=== PATIENT | female | born 1995 | race Two or more races ===

== ENCOUNTER 2021-02-12 07:58 | Inpatient (IN) | payer OTHER ==
[~2021-02-12] VITALS: Ht 167.6 cm; Wt 59.8 kg
[2021-02-12 09:54] LABS: COVID AG,FIA SOURCE NASOPHARYNGEAL
[2021-02-12 09:58] LABS: BASOPHILS % (AUTO) 0.4 % (0.0-2.0); EOSINOPHILS % (AUTO) 0.7 % (1.0-6.0); HEMATOCRIT 44.6 % (36-46); HEMOGLOBIN 14.8 g/dL (12.0-16.0); LYMPHOCYTES # (AUTO) 1.4 K/uL (1.0-4.8); LYMPHOCYTES % (AUTO) 17.3 % (22.0-44.0); MEAN CORPUSCULAR HEMOGLOBIN 33.2 pg (26.0-34.0); MEAN CORPUSCULAR HGB CONC 33.2 G/dL (31.0-37.0); MEAN CORPUSCULAR VOLUME 100 fL (80-100); MONOCYTES # (AUTO) 0.7 K/uL (0.1-1.0); MONOCYTES % (AUTO) 8.1 % (2.0-9.0); NEUTROPHILS # (AUTO) 6.1 K/uL (1.8-7.7); NEUTROPHILS % (AUTO) 73.5 % (40.0-70.0); PLATELET COUNT (AUTO) 286 K/uL (150-450); RED BLOOD CELL COUNT(AUTO) 4.46 MIL/uL (4.00-5.20); RED CELL DISTRIBUTION WIDTH 13.4 % (11.5-14.5)
[2021-02-12 10:05] LABS: CALCIUM, TOTAL 9.5 mg/dL (8.8-10.5); CARBON DIOXIDE 29 mmol/L (22-29); CHLORIDE 104 mmol/L (98-107); CREATININE 0.69 mg/dL (0.60-1.30); GLOMERULAR FILTR. RATE CALC > 60 mL/min (>60); GLUCOSE,RANDOM 103 mg/dL (70-110); UREA NITROGEN, BLOOD 6 mg/dL (7-18)
[2021-02-12 10:09] LABS: ANION GAP 7 mmol/L (8-16); POTASSIUM 4.4 mmol/L (3.5-5.1); SODIUM SERUM 140 mmol/L (136-145)
[2021-02-12 10:17] LABS: BILIRUBIN,TOTAL 0.6 mg/dL (0.1-1.0)
[2021-02-12 10:18] LABS: ALANINE AMINOTRANSFERASE 33 U/L (12-78); ALBUMIN 4.3 g/dL (3.4-5.0); ALKALINE PHOSPHATASE 78 U/L (46-116); ASPARTATE AMINOTRANSFERASE 23 U/L (15-37); HCG,QUANTITATIVE < 1 mIU/mL (0-6); TOTAL PROTEIN, SERUM 7.7 g/dL (6.4-8.2)
[2021-02-12 10:28] LABS: AMPHET/METH SCREEN,URINE NEGATIVE (NEGATIVE); BARBITURATE SCREEN, URINE NEGATIVE (NEGATIVE); BENZODIAZEPINES SCREEN,URINE NEGATIVE (NEGATIVE); CANNABINOID SCREEN,URINE POSITIVE (NEGATIVE); COCAINE SCREEN,URINE NEGATIVE (NEGATIVE); METHADONE SCREEN, URINE NEGATIVE (NEGATIVE); OPIATE SCREEN,URINE NEGATIVE (NEGATIVE)
[2021-02-12 10:33] LABS: PHENCYCLIDINE SCREEN,URINE NEGATIVE (NEGATIVE)
[2021-02-12] MEDS ORDERED: ZOLPIDEM TARTRATE 10 MG TABLET PO PRN (12:15)
[2021-02-12] MEDS ORDERED: HALOPERIDOL 5 MG TABLET PO PRN (12:15)
[2021-02-12 14:01] VITALS: BP 140/85
[2021-02-12 16:06] VITALS: BP 124/68
[2021-02-13] MEDS ORDERED: MAGNESIUM HYDROXIDE SUSPENSION 30 ML UDCUP PO PRN (07:30)
[2021-02-13] MEDS ORDERED: PETROLATUM,WHITE 28 GM JELLY TP PRN (07:30)
[2021-02-13] MEDS ORDERED: ACETAMINOPHEN 325 MG TABLET PO PRN (07:30)
[2021-02-13] MEDS ORDERED: ONDANSETRON HCL 4 MG TABLET PO PRN (07:30)
[2021-02-13] MEDS ORDERED: GuaiFENesin/D-METHORPHAN [SUGAR-FREE] 200-20MG/10 ML SYRUP UDCUP PO PRN (07:30)
[2021-02-13] MEDS ORDERED: DOCUSATE SODIUM 100 MG CAPSULE PO PRN (07:30)
[2021-02-13] MEDS ORDERED: IBUPROFEN 400 MG TABLET PO PRN (07:30)
[2021-02-13] MEDS ORDERED: MAG HYDROX/AL HYDROX/SIMETH ES 30 ML SUSPENSION UDCUP PO PRN (07:30)
[2021-02-13] MEDS ORDERED: LOPERAMIDE HCL 2 MG CAPSULE PO PRN (07:30)
[2021-02-13] MEDS ORDERED: ALBUTEROL SULFATE HFA 90 MCG/PUFF 8 GM INHALER IH PRN (07:30)
[2021-02-13] MEDS ORDERED: NICOTINE 14 MG/24 HOUR PATCH TD PRN (07:30)
[2021-02-13] MEDS ORDERED: CloNIDine HCL 0.1 MG TABLET PO PRN (07:30)
[2021-02-13 08:04] VITALS: BP 112/76
[2021-02-13 16:07] VITALS: BP 110/65
[2021-02-13] MEDS: RisperiDONE 1 MG TABLET PO SCH (20:26)
[2021-02-13] MEDS: LORazepam 2 MG TABLET PO PRN (20:26)
[2021-02-14] MEDS: LORazepam 2 MG TABLET PO PRN ×2 (08:34→20:16)
[2021-02-14 09:43] VITALS: BP 115/84
[2021-02-14 12:12] LABS: CHOL/HDL RATIO 2.8 (3.9-5.7)
[2021-02-14 16:00] VITALS: BP 112/75
[2021-02-14] MEDS: RisperiDONE 1 MG TABLET PO SCH (20:16)
[2021-02-15 08:45] VITALS: BP 125/60
[2021-02-15 16:46] VITALS: BP 121/77
[2021-02-15] MEDS: RisperiDONE 1 MG TABLET PO SCH (20:16)
[2021-02-15] MEDS: LORazepam 2 MG TABLET PO PRN (20:16)
[2021-02-16 08:25] VITALS: BP 107/64
[2021-02-16 16:31] VITALS: BP 116/77
[2021-02-16] MEDS: RisperiDONE 1 MG TABLET PO SCH (20:29)
[2021-02-17] MEDS: RisperiDONE 1 MG TABLET PO SCH ×2 (08:19→20:03)
[2021-02-17 08:46] VITALS: BP 117/73
[2021-02-17 16:33] VITALS: BP 108/69
[2021-02-18] MEDS: RisperiDONE 1 MG TABLET PO SCH ×2 (08:20→20:26)
[2021-02-18 08:27] VITALS: BP 104/61
[2021-02-18 14:16] LABS: COVID AG,FIA SOURCE NASOPHARYNGEAL
[2021-02-18] MEDS: LORazepam 2 MG TABLET PO PRN (20:25)
[2021-02-19] MEDS: RisperiDONE 1 MG TABLET PO SCH ×2 (08:11→20:21)
[2021-02-19 09:15] VITALS: BP 127/76
[2021-02-19 16:00] VITALS: BP 113/71
[2021-02-19] MEDS: LORazepam 2 MG TABLET PO PRN (20:21)
[2021-02-20] MEDS: RisperiDONE 1 MG TABLET PO SCH ×2 (08:16→20:22)
[2021-02-20 08:19] VITALS: BP 112/66
[2021-02-20] MEDS: LORazepam 2 MG TABLET PO PRN (20:22)
[2021-02-21] MEDS: RisperiDONE 1 MG TABLET PO SCH ×2 (08:18→20:20)
[2021-02-21 08:20] VITALS: BP 119/67
[2021-02-21 16:43] VITALS: BP 109/72
[2021-02-21] MEDS: LORazepam 2 MG TABLET PO PRN (20:20)
[2021-02-22 08:18] VITALS: BP 130/76
[2021-02-22] MEDS: RisperiDONE 1 MG TABLET PO SCH ×2 (09:01→20:29)
[2021-02-22 16:00] VITALS: BP 126/70
[2021-02-23 08:00] VITALS: BP 98/55
[2021-02-23] MEDS: RisperiDONE 1 MG TABLET PO SCH (08:08)
[2021-02-23] MEDS ORDERED: ESCITALOPRAM OXALATE 10 MG TABLET PO SCH (09:00)
[2021-02-23] MEDS ORDERED: ESCI-8 PO (13:24)
[2021-02-23] MEDS ORDERED: RISP1TAB48 PO (13:25)
== END 2021-02-23 14:45 | disposition home or self-care (01) | DRG 885 ==
LOC: EMS 08:05 → 3EC 12:19
DX: F25.1 Schizoaffective disorder, depressive type (principal); E44.0 Moderate protein-calorie malnutrition; Z20.822 Contact with and (suspected) exposure to COVID-19; F12.10 Cannabis abuse, uncomplicated; F17.200 Nicotine dependence, unspecified, uncomplicated; R45.850 Homicidal ideations; Z59.0 Homelessness; Z79.899 Other long term (current) drug therapy; Z68.21 Body mass index [BMI] 21.0-21.9, adult
CPT/HCPCS: 80053; 80061; 84702; 85025; 99285; G0480